=== PATIENT | female | born 1980 | race Caucasian/White ===

== ENCOUNTER 2021-06-14 04:52 | Inpatient (IN) | payer OTHER ==
[~2021-06-14] VITALS: Ht 162.6 cm; Wt 103.4 kg
[2021-06-14 04:55] VITALS: BP 105/66
[2021-06-14 05:30] LABS: ABSOLUTE NEUTROPHILS 6.3 thou/uL (1.4-8.2); BASOPHILS 1.3 % (0.0-2.0); EOSINOPHILS 0.8 % (0.0-3.0); HEMATOCRIT 43.6 % (37.0-47.0); HEMOGLOBIN 14.9 gm/dL (12.0-15.0); LYMPHOCYTES 39.8 % (24.0-44.0); MCH 30.8 pg (26.0-34.0); MCHC 34.1 g/dL (28.0-37.0); MCV 90.4 fL (80.0-100.0); MONOCYTES 9.3 % (1.0-8.0); PLATELET COUNT 333 thou/uL (150-400); POLYS 48.8 % (36.0-66.0); RBC 4.82 mil/uL (4.20-5.00); RDW 12.8 % (10.5-14.5); WBC 12.9 thou/uL (4.0-11.0)
[2021-06-14 06:07] LABS: CALCIUM 9.3 mg/dL (8.5-10.1); CREATININE 0.6 mg/dL (0.6-1.0); POTASSIUM 3.8 mmol/L (3.5-5.1)
[2021-06-14 06:10] LABS: URINE BILIRUBIN NEGATIVE (Negative); URINE BLOOD 3+ (Negative); URINE COLOR YELLOW; URINE GLUCOSE-RANDOM* 3+ (Negative); URINE KETONES TRACE (Negative); URINE LEUKOCYTES-REFLEX NEGATIVE (Negative); URINE NITRITE-REFLEX NEGATIVE (Negative); URINE PROTEIN (DIPSTICK) NEGATIVE (Negative); URINE SPECIFIC GRAVITY 1.015 (1.005-1.035); URINE UROBILINOGEN 0.2 E.U./dl (0.2-1.0)
[2021-06-14 06:12] LABS: TOTAL BILIRUBIN 0.2 mg/dL (0.2-1.0); TOTAL PROTEIN 7.4 g/dL (6.4-8.2)
[2021-06-14 06:12] LABS: URINE CLARITY HAZY
[2021-06-14 06:14] LABS: BACTERIA-REFLEX 1-9 Few /HPF (None Seen); CASTS None Seen /LPF (None Seen); CRYSTALS None Seen /LPF (None Seen); SQUAMOUS 4-10 Moderate /LPF (0-3); URINE RBC >20 Many /HPF (NONE SEEN); URINE WBC-REFLEX 0-5 Rare /HPF (0-5)
[2021-06-14 07:53] VITALS: BP 106/67
--- NOTE | 2021-06-14 07:53 | NUR ---
Pt going to surgery at this time
[2021-06-14 14:37] VITALS: BP 125/71
--- NOTE | 2021-06-14 15:54 | NUR ---
ADMITTED TO 4S FOR LAP APPY. A/O X 4. ROOM AIR. ONLY MOLDOV[place] SPEAKING. HAS 2 ABD LAPSITES WITH DERMABOUND, ABD PAPO DRAIN. AC HS BS @ [facility]. NEW ONSET DIABETES. HAS TROUBLE SEEING. CLEAR LIQUID DIET. ABD PAIN 8/10 MORPHINE PRN GIVEN. BILATERAL TEDS AND SCDS ON. ICE PACK ON ABD. INSULIN WILL BE STARTED AT DINNERTIME. AT BEDSIDE. BLUEPHONE USED.
[2021-06-14 16:42] VITALS: BP 120/68
[2021-06-14 19:41] VITALS: BP 139/73
[2021-06-15 01:06] LABS: GLYCOHEMOGLOBIN (HGB A1C) 14.4 % (4.8-5.6)
--- NOTE | 2021-06-15 04:11 | NUR ---
Pt. rested quietly during the night when checked on during frequnet rounds. She c/o abdominal pain and po pain med given (see emar) with relief noted. Lapsites to abdomen are intact along with edmond drain to abdomen. Up to the bathroom with stand by assistance. No c/o nausea.
[2021-06-15 05:13] LABS: ALBUMIN 2.3 g/dL (3.4-5.0); CALCIUM 8.8 mg/dL (8.5-10.1); CREATININE 0.5 mg/dL (0.6-1.0); MAGNESIUM 1.8 mg/dL (1.8-2.4); POTASSIUM 3.8 mmol/L (3.5-5.1)
[2021-06-15 05:21] LABS: HEMATOCRIT 40.9 % (37.0-47.0); HEMOGLOBIN 13.5 gm/dL (12.0-15.0); MCH 30.3 pg (26.0-34.0); MCHC 32.9 g/dL (28.0-37.0); MCV 91.9 fL (80.0-100.0); RBC 4.44 mil/uL (4.20-5.00); RDW 13.3 % (10.5-14.5); WBC 14.7 thou/uL (4.0-11.0)
[2021-06-15 07:26] VITALS: BP 112/69
--- NOTE | 2021-06-15 11:45 | NUR ---
Salvador visited with dayana and her sig other in the room via phone [employer] worker taina, ref # [id number]. Uninsured. unable to afford her supplies she will need to check her bs at home, can afford 4 $ medication. provided information that will vouch for 1 month no refills of medication and then can follow up with [facility] and her test device, test strips and lancets. Cm passed on information to attending hospitalist.
[2021-06-15] MEDS ORDERED: OTHER MISCELL (11:53)
[2021-06-15] MEDS ORDERED: METFORMIN HCL500 MG PO (11:53)
--- NOTE | 2021-06-15 14:07 | PATH ---
[facility] [address] [place] [address] PATHOLOGY RPT PROCEDURE Name: NOAM HANCOCK Room #: 437-P [facility] M.R.#: [id number] Admission: 06/14/21 Date of : 76 Discharge: Report #: [id number] Path Case #: [id number] [facility] Accession Number: [id number] . 01 Material submitted: . appendix - APPENDIX . 01 Clinical history: . LAPAROSCOPIC APPENDECTOMY APPENDICITIS . 02 Diagnosis: Appendix, appendectomy: - Acute appendicitis with serositis. . (ANK:jonatan; 06/15/2021) [facility] 06/15/2021 1102 Local . 02 Electronically signed: . Nivia Rizvi MD, Pathologist NPI- [id number] . 01 Gross description: . Fixative: Formalin Labeled: Appendix Appendix length: 6.1 cm Appendix diameter: 0.5 cm Mesoappendix: 1.6 cm Proximal margin: Stapled Serosa: Light bowens-pink to dark bowens-zee and roughened Cut surface: Pinpoint to dilated lumen Luminal diameter: Up to 0.4 cm Perforation: None identified Lesions/abnormalities: None identified A1 Proximal margin (inked black) and distal tip, bisected A2 Mid appendix ([facility]; 06/14/2021) [facility] 06/14/2021 1630 Local . 02 Pathologist provided ICD-10: K35.80 . 02 CPT . 617661 Specimen Comment: A courtesy copy of this report has been sent to [phone] Specimen Comment: Report sent to Performed at: [address] [address] PATHOLOGY RPT PROCEDURE Name: NOAM HANCOCK Room #: 437-P [facility]#: [id number] Admission: 06/14/21 Date of : 76 Discharge: Report #: [id number] Path Case #: [id number] [address] [facility] [address], [place] [id number] MD Rene Guerrier MD Phone: [phone] Performed at: [address] [id number] MD Nivia Rizvi MD Phone: [phone]
[2021-06-15 15:02] VITALS: BP 112/69
--- NOTE | 2021-06-15 15:23 | NUR ---
Resummed pt care this morning from overnight shift. Pt was in bed resting during this time and was alert and oriented 4x. Pt speaks predominantly Mozambican, so Mozambican words and phrases were used to describe medical terms when needed. Pt was in the room as well at this time, who also does not speak much Serbian. Pt asked if she needed a gut sorter but declined one at this time, stating she understand what was said. Pt has edmond to right lower abdomen and was initially on a clear liquids diet as she had come from surgery. Pt advanced to normal diabetic diet today as tolerated. Calf sleeves on bilaterally. Provider dc ceftriazone, metronidazole IV. Started insulin sliding scale, glipizide, metronidazole po, enoxaparin, cefinir po at this time. New medications explained to pt. Pt has been compliant with all medications and has tolerated insulin well. Breakfast bg 232, lunch bg 275. 10 and 12 units of insulin given respectively. CM has been in to see pt and work on resources with pt. Per MARJORIE Rosales we will be switching pt to [facility] to help cover glucometer and blood glucose medication due to pt insurance. This has been explained to pt. Front Desk Host line is [phone] and pt number is [phone] if needed. No further concerns at this time.
[2021-06-15 15:40] VITALS: BP 117/78
[2021-06-15 19:38] VITALS: BP 147/81
--- NOTE | 2021-06-15 20:00 | NUR ---
Pt. up to the bathroom and had a moderate amount of bright red vaginal bleeding. She reports that she still has periods, but they are not regular. Hafsa CARMICHAEL called and notified with orders for CBC in the am.
--- NOTE | 2021-06-16 05:04 | NUR ---
Pt. rested quietly during the night when checked on during frequent rounds. She continues to have some vaginal bleeding, but nothing heavy. Given scheduled tylenol for abdomimal pain with noted relief (see emar). Up to the bathroom with standby assistance. Lapsites to abdomen are intact.
[2021-06-16 06:01] LABS: HEMATOCRIT 39.7 % (37.0-47.0); HEMOGLOBIN 13.4 gm/dL (12.0-15.0); MCH 31.1 pg (26.0-34.0); MCHC 33.9 g/dL (28.0-37.0); MCV 91.9 fL (80.0-100.0); RBC 4.32 mil/uL (4.20-5.00); RDW 13.3 % (10.5-14.5); WBC 17.2 thou/uL (4.0-11.0)
[2021-06-16 07:54] VITALS: BP 152/93
[2021-06-16 09:11] VITALS: BP 152/93
--- NOTE | 2021-06-16 14:17 | NUR ---
Dc home no needs when medically stable, [facility] given to dayana and her sig other.
[2021-06-16 15:18] VITALS: BP 140/93
[2021-06-16] MEDS ORDERED: MIRALAX17 GM PO (16:38)
[2021-06-16] MEDS ORDERED: TRAMADOL 50 MG50 MG PO (16:38)
== END 2021-06-16 18:28 | disposition home or self-care (01) | DRG 343 ==
LOC: ER 04:52 → EROBS 07:25 → TBA 07:55 → 4S 14:01
PROVIDERS: Emergency Medicine; Nurse Practitioner; Nurse Practitioner Family; Surgery; ADMIT Surgery; ATTEND Surgery
PROC: 0DTJ4ZZ Resection of Appendix, Percutaneous Endoscopic Approach (ICD-10-PCS; principal; 2021-06-14)
DX: K35.30 Acute appendicitis with localized peritonitis, without perforation or gangrene (principal); K66.0 Peritoneal adhesions (postprocedural) (postinfection); E11.9 Type 2 diabetes mellitus without complications; R74.01 Elevation of levels of liver transaminase levels; E66.01 Morbid (severe) obesity due to excess calories; N88.8 Other specified noninflammatory disorders of cervix uteri; Z20.822 Contact with and (suspected) exposure to COVID-19; Z23 Encounter for immunization; Z86.16 Personal history of COVID-19; Z90.49 Acquired absence of other specified parts of digestive tract; Z68.39 Body mass index [BMI] 39.0-39.9, adult
CPT/HCPCS: 10195; 50010; 50101; 50331; 50411; 50555; 50739; 51489; 52265; 53307; 53310; 53312; 54022; 54118; 56525; 56526; 58574; 58867; 58868; 58911; 62110; 62900; 70005